=== PATIENT | female | born 1995 ===

== ENCOUNTER 2021-05-01 09:46 | Inpatient (IN) | payer SELFPAY ==
[2021-05-01] MEDS ORDERED: METOCLOPRAMIDE 10 MG/2 ML INJ IV ONE (10:04)
[2021-05-01] MEDS ORDERED: FAMOTIDINE 20 MG/2 ML INJ IV ONE (10:04)
[2021-05-01] MEDS ORDERED: BICITRA ORAL LIQD 30ML PO ONE (10:04)
--- NOTE | 2021-05-01 10:07 | History and Physical Report ---
History of Present Illness Date of examination: 05/01/21 Date of admission: 05/01/21 09:46 Chief complaint: repeat section Past History - Obstetrical History Expected Date of Delivery: 05/01/21 Actual Gestation: 40 Week(s) 0 Day(s) : 4 Para: 2 Spontaneous Abortions: 1 Number of Living Children: 2 Medications and Allergies Allergies Allergy/AdvReac Type Severity Reaction Status Date / Time Penicillins Allergy Hives Verified 05/01/21 10:17 Home Medications Medication Instructions Recorded Confirmed Last Taken Type One Daily Tablet 1 tab PO DAILY 05/01/21 05/01/21 1 Day Ago History ~04/30/21 Review of Systems All systems: negative (no OB complaints) - Physical Exam Breasts: Positive: deferred Cardiovascular: Regular rate Abdomen: Positive: normal appearance, soft Genitourinary (Female): Positive: normal external genitalia Vulva: both: normal Vagina: Positive: normal moisture Uterus: Positive: enlarged (37cm) Adnexa: both: normal Anus/Rectum: Positive: normal perianal skin Extremities: Positive: normal Deep Tendon Reflex Grade: Normal +2 Results Result Diagrams: 05/01/21 10:18 All other labs normal. Assessment and Plan ERCS NPO, clinical rn liaison to OR for procedure Louie Petty MD
[2021-05-01] MEDS ORDERED: CLINDAMYCIN 600 MG/50 mL 600 MG/50 ML BAG IV NR (11:00)
[2021-05-01] MEDS ORDERED: ceFAZolin/Water 2 GM/20 ML 2 GM/20 ML SYRINGE IV NR (11:00)
[2021-05-01] MEDS ORDERED: OXYTOCIN DRIP 30 UNITS/500 ML BAG IV SCH (11:00)
[2021-05-01 11:02] LABS: Basophils % (Auto) 0.4 % (0.0-1.8); Eosinophils # (Auto) 0.2 K/mm3 (0.0-0.4); Eosinophils % (Auto) 1.7 % (0.0-4.3); Hematocrit 36.4 % (30.3-42.9); Hemoglobin 12.3 gm/dl (10.1-14.3); Lymphocytes # (Auto) 2.8 K/mm3 (1.2-5.4); Lymphocytes % (Auto) 26.5 % (13.4-35.0); Mean Corpuscular HGB Conc 34 % (30-34); Mean Corpuscular Volume 82 fl (79-97); Monocytes % (Auto) 9.1 % (0.0-7.3); Red Blood Count 4.46 M/mm3 (3.65-5.03); Red Cell Distribution Width 13.6 % (13.2-15.2)
[2021-05-01] MEDS: LACTATED RINGERS 1,000 ML IV SCH ×3 (11:13→20:55)
[2021-05-01 12:12] LABS: Platelet Count 246 K/mm3 (140-440)
--- NOTE | 2021-05-01 12:31 | Anesthesia Consultation ---
Anesthesia Consult and Med Hx Date of service: 05/01/21 - Airway Anesthetic Teeth Evaluation: Good ROM Head & Neck: Adequate Mental/Hyoid Distance: Adequate Mallampati Class: Class II Intubation Access Assessment: Good - Pulmonary Exam CTA: Yes - Cardiac Exam Cardiac Exam: RRR - Pre-Operative Health Status ASA Pre-Surgery Classification: ASA2 Proposed Anesthetic Plan: Spinal (mexican speaking, inter line for consent and h/p) - Pulmonary Hx Asthma: No COPD: No Hx Pneumonia: No - Cardiovascular System Hx Hypertension: No - Central Nervous System Hx Seizures: No Hx Psychiatric Problems: No - Endocrine Hx Renal Disease: No Hx End Stage Renal Disease: No Hx Hypothyroidism: No Hx Hyperthyroidism: No - Hematic Hx Anemia: No Hx Sickle Cell Disease: No - Other Systems Hx Alcohol Use: Yes (before preg.)
--- NOTE | 2021-05-01 12:31 | Anesthesia Day of Surgery ---
Anesthesia Day of Surgery - Day of Surgery Patient Examined: Yes Patient H&P Reviewed: Yes Patient is NPO: Yes
[2021-05-01] MEDS ORDERED: WATER FOR IRRIG STERILE 1,500 ML BOTTLE IR ONE (13:00)
[2021-05-01] MEDS ORDERED: SODIUM CHLORIDE 0.9% IRR 1,500 ML BOTTLE IR ONE (13:00)
[2021-05-01] MEDS ORDERED: IBUPROFEN 600 MG TAB PO PRN (14:07)
--- NOTE | 2021-05-01 14:16 | Procedure Note ---
OB Delivery Note - Delivery Date of Delivery: 05/01/21 Surgeon: CHIARA FAIR - Section Preop diagnosis: repeat Postop diagnosis: same section procedure: repeat low transverse Disposition: PACU Complications: none Narrative: Preop diagnosis: IUP at 40.0 weeks,previous sectionx2 for elective repeat section Postop diagnosis: Same,delivered Procedure: Repeat low transverse section via Pfannenstiel incision Surgeon: Dr. Chiara Fair Anesthesia spinal Complications none EBL 600ml IV fluids 1000mL Urine output 100mL, clear Drains Loving to gravity Findings: Viable male with weight 2970gms and 9/9, normal uterus tubes and ovaries bilaterally Procedure: Patient was consented in OB triage, taken to the operating room where she received excellent spinal anesthesia. She was then placed in the dorsal supine position with a leftward tilt. The abdomen was prepped and draped in a sterile fashion, and a timeout was verified. Adequate anesthesia was confirmed prior to the skin incision. A Pfannenstiel skin incision was made with a scalpel taken down to the underlying structures and the fascia was incised in the midline. The incision was extended laterally with curved Calderon scissors, the superior and inferior aspects of the fascial incisions were grasped with Hemant clamps and the rectus muscles dissected sharply. The abdomen was entered bluntly in the midline carried down inferiorly with good visualization of the bladder. The vesicouterine peritoneum was tented with [place] forceps and incised in the midline with Metzenbaum scissors and the vesicouterine peritoneum taken down sharply. Bladder blade was inserted, the uterine incision was made sharply with a scalpel. The inferior and superior aspect of the uterine incisions were extended bluntly, the baby's head was delivered atraumatically. The remainder of the delivery was uncomplicated, a loose nuchal cord was reduced after delivery. The cord was clamped and cut and baby handed to waiting NICU team. An intact placenta with three-vessel cord delivered manually. The uterus was then cleared of all clots and debris and the uterus exteriorized. The uterine incision was closed with 2 layers of 0 chromic with excellent hemostasis. The abdomen was then irrigated with warm normal saline and the uterus placed back into the abdomen atraumatically. A second look at the uterine incision and assured hemostasis. The peritoneum was closed with 3-0 Vicryl, the rectus muscles approximated with 3-0 Vicryl, and the fascia closed with 0 Vicryl in the usual fashion. The subcuticular structures were closed with interrupted sutures of 3-0 Vicryl and the skin closed with 4-0 Monocryl. A pressure dressing was applied. All sponge needle and instrument counts were correct x2. There were no complications. Mom and baby to PACU and in stable condition. Louie Fair MD
--- NOTE | 2021-05-01 14:28 | Post Anesthesia Evaluation ---
- Post Anesthesia Evaluation Patient Participated: Yes Airway Patent: Yes Stable Respiratory Function: Yes Nausea/Vomiting: No Temp > 96.8F: Yes Pain Manageable: Yes Adequeate Hydration: Yes Anesthesia Complications: No Block Receding Appropriately: Yes Patient on Ventilator: No
--- NOTE | 2021-05-01 14:31 | Progress Note ---
Spinal Anesthesia Block - Spinal Anesthesia Block Start Time: 12:40 Stop Time: 12:46 Performed by:: AMY EAST Procedure: Spinal anesthesia block is being performed for [repeat c/s]. H&P, labs have been reviewed. Patient's questions and concerns have been answered. Informed consent has been performed. Timeout has was performed. Patient in sitting position on side of bed. Sterile prep and drape was performed. 3 mL 1% lidocaine skin wheal at L [3]-L [4]. Needle introducer advanced. 25-gauge spinal needle advanced, [+] CSF [-] blood. [1.2 .75 bup with dextrose and 10 mcg precedex] Spinal dose was given. All needles removed. Patient tolerated procedure well.
--- NOTE | 2021-05-01 14:32 | Progress Note ---
Regional Anesthesia Block - Regional Anesthesia Block Start Time: 14:07 Stop Time: 14:16 Performed By:: AMY EAST Procedure: Patient consented for TAP block for post surgical pain management. Patient identified, monitors placed, and time out performed. Mid axillary TAP identified bilaterally via ultrasound. Skin prepped bilaterally with [chlorhexidine] and [20g stimuplex] needle advanced to the TAP. 30ml [Marcaine 0.25% with 25mcg Precedex and Decadron 5mg] injected under ultrasound guidance on the [left] side. 30ml [Marcaine 0.25% with 25mcg Precedex and Decadron 5mg] injected under ultrasound guidance on the [right] side. Negative aspiration every 5mL, Patient tolerated the procedure well. No apparent complications seen.
[2021-05-01] MEDS ORDERED: ACETAMINOPHEN 325 MG TAB PO PRN (15:00)
[2021-05-01] MEDS ORDERED: WITCH HAZEL/ GLYCERIN PAD TP PRN (15:00)
[2021-05-01] MEDS ORDERED: KETOROLAC 30 MG/1 ML INJ IV PRN (15:00)
[2021-05-01] MEDS ORDERED: LANOLIN/ZINC/DIMETHICONE (LANSINOH) 7 GM TP PRN (15:00)
[2021-05-01] MEDS ORDERED: PROMETHAZINE 25 MG RECT SUPP PR PRN (15:00)
[2021-05-01] MEDS ORDERED: ONDANSETRON 4 MG/2 ML INJ IV PRN (15:00)
[2021-05-01] MEDS ORDERED: NALOXONE 0.4 MG/1 ML INJ IV PRN (15:00)
[2021-05-01] MEDS ORDERED: MORPHINE 2 MG/1 ML INJ IV PRN (15:00)
[2021-05-01] MEDS: MORPHINE 4 MG/1 ML INJ IV PRN (18:03)
[2021-05-01] MEDS: KETOROLAC 30 MG/1 ML INJ IV PRN (21:01)
[2021-05-01] MEDS ORDERED: SENNOSIDES 8.6 MG TAB PO PRN (22:00)
[2021-05-01] MEDS ORDERED: MAGNESIUM HYDROXIDE (MOM) ORAL LIQD UDC PO PRN (22:00)
[2021-05-02] MEDS: MORPHINE 4 MG/1 ML INJ IV PRN ×3 (00:08→10:47)
[2021-05-02 01:18] LABS: Hematocrit 31.7 % (30.3-42.9); Hemoglobin 11.1 gm/dl (10.1-14.3)
[2021-05-02] MEDS: KETOROLAC 30 MG/1 ML INJ IV PRN ×2 (02:46→09:11)
[2021-05-02] MEDS: FERROUS SULFATE 325 MG TAB PO SCH (10:20)
--- NOTE | 2021-05-02 11:51 | Progress Note ---
Assessment and Plan A: /postop day 1 S/P repeat LTCS. P: Encouraged patient to ambulate. Advance diet. Continue routine /postop care. Subjective - Subjective Date of service: 05/02/21 Principal diagnosis: /postop day 1 S/P repeat LTCS Patient reports: appetite normal, voiding normally, pain well controlled, flatus, ambulating normally, no dizzy ambulation : doing well Objective - Vital Signs Latest vital signs: Vital Signs Temp Pulse Resp BP BP Pulse Ox Pulse Ox 05/02/21 08:26 97.5 F L 59 L 18 101/60 97 05/02/21 08:20 100 05/02/21 05:49 97.9 F 68 18 98/57 97 05/02/21 00:24 98.1 F 67 18 119/52 97 05/01/21 20:33 97.9 F 63 16 94/50 98 05/01/21 20:30 100 05/01/21 15:55 97.5 F L 56 L 16 99/50 97 97 05/01/21 15:23 98 F 56 L 19 100/51 98 05/01/21 14:40 97.6 F 66 16 100/52 98 05/01/21 14:25 59 L 18 101/52 98 05/01/21 14:10 61 17 109/49 98 05/01/21 14:05 62 18 106/52 98 05/01/21 13:58 97.8 F 62 19 104/51 98 05/01/21 12:11 76 97 05/01/21 12:06 60 99 05/01/21 12:01 71 99 05/01/21 11:56 60 99 05/01/21 11:51 58 L 99 Intake and Output 05/01/21 05/02/21 05/02/21 23:59 07:59 15:59 Intake Total 120 600 Output Total 350 1600 Balance -230 -1000 Intake: Oral 120 Intake, Free Water 600 Output: Urine 350 1600 Indwelling Catheter 350 1600 Other: Total, Intake Amount 120 Total, Output Amount 350 1600 - Exam Cardiovascular: Present: Regular rate Lungs: Present: Clear to auscultation Abdomen: Present: normal appearance, soft, normal bowel sounds. Absent: distention, tenderness, guarding, rigidity Uterus: Present: normal, firm, fundal height below umbilicus. Absent: bogginess, tenderness Extremities: Present: normal. Absent: tenderness, edema Incision: Present: normal, dry, dressed
[2021-05-02] MEDS ORDERED: MEASLES, MUMPS & RUBELLA 12,500 UNIT/0.5 ML VACCINE SUB-Q ONE (12:00)
[2021-05-02] MEDS ORDERED: SIMETHICONE 80 MG CHEW TAB PO PRN (12:00)
[2021-05-02] MEDS: HYDROcodone/ACETAMINOPHEN 5-325 MG TAB PO PRN ×2 (15:08→21:57)
[2021-05-02] MEDS: IBUPROFEN 800 MG TAB PO PRN (18:20)
[2021-05-03] MEDS: IBUPROFEN 800 MG TAB PO PRN (05:01)
--- NOTE | 2021-05-03 10:19 | Progress Note ---
Assessment and Plan stable continue routine postop care may d/c to home as desired Louie Petty MD Subjective - Subjective Date of service: 05/03/21 Principal diagnosis: /postop day 1 S/P repeat LTCS Patient reports: appetite normal, voiding normally, pain well controlled, ambulating normally [place]: doing well Objective - Vital Signs Latest vital signs: Vital Signs Temp Pulse Resp BP BP Pulse Ox Pulse Ox 05/03/21 08:50 98 F 62 16 100/60 05/03/21 08:00 98 05/03/21 05:01 12 05/03/21 01:14 98.3 F 64 20 98/56 96 05/02/21 21:57 12 05/02/21 20:00 98 05/02/21 16:15 97.9 F 63 18 106/50 97 Intake and Output 05/02/21 05/03/21 05/03/21 23:59 07:59 15:59 Intake Total 360 240 120 Balance 360 240 120 Intake: Oral 240 120 Intake, Free Water 360 Other: Total, Intake Amount 240 120 # Voids Void 2 1 1 - Exam Breasts: Present: deferred Cardiovascular: Present: Regular rate Lungs: Present: Clear to auscultation Abdomen: Present: normal appearance, soft, normal bowel sounds Vulva: both: normal Uterus: Present: fundal height below umbilicus Extremities: Present: normal Deep Tendon Reflex Grade: Normal but brisk +3 Incision: Present: normal, dry, intact, dressed
--- NOTE | 2021-05-03 10:20 | Discharge Summary ---
Providers - Providers Date of Admission: 05/01/21 09:46 Date of discharge: 05/03/21 Attending physician: CHIARA FAIR MD Primary care physician: CHIARA FAIR MD Hospitalization Reason for admission: section Delivery: Incision: normal, intact, dressed Condition at discharge: Stable Disposition: 01 HOME / SELF CARE / HOMELESS Plan - Discharge Medications Prescriptions: Ibuprofen [Motrin] 600 mg PO Q8H PRN #60 tablet PRN Reason: Pain oxyCODONE /ACETAMINOPHEN [Percocet 5/325] 1 tab PO Q6HR PRN #20 tablet PRN Reason: Pain - Provider Discharge Summary Activity: no sex for 6 weeks Diet: routine Instructions: routine Additional instructions: [] Smoking cessation referral if applicable(refer to patient education folder for contact #) [] Refer to [facility] Booklet Call your doctor immediately for: * Fever > 100.5 * Heavy vaginal bleeding ( >1 pad per hour) * Severe persistent headache * Shortness of breath * Reddened, hot, painful area to leg or breast * Drainage or odor from incision. * Keep incision clean and dry at all times and follow doctor's instructions regarding bathing/showering - Follow up plan Follow up: CHIARA FAIR MD [Primary Care Provider] - 14 Days
[2021-05-03] MEDS: FERROUS SULFATE 325 MG TAB PO SCH (11:31)
[2021-05-03 15:07] VITALS: BP 103/58
== END 2021-05-03 16:20 | disposition home or self-care (01) | DRG 788 ==
LOC: APU 09:46 → OB 16:03
PROVIDERS: ADMIT Obstetrics & Gynecology; ATTEND Obstetrics & Gynecology
PROC: 10D00Z1 Extraction of Products of Conception, Low, Open Approach (ICD-10-PCS; principal; 2021-05-01)
PROC: 3E0T3BZ Introduction of Anesthetic Agent into Peripheral Nerves and Plexi, Percutaneous Approach (ICD-10-PCS; 2021-05-01)
DX: O34.211 Maternal care for low transverse scar from previous cesarean delivery (principal); Z3A.40 40 weeks gestation of pregnancy; Z37.0 Single live birth; Z88.0 Allergy status to penicillin; Z20.822 Contact with and (suspected) exposure to COVID-19
CPT/HCPCS: 36415; 85014; 85018; 85025; 86850; 86900; 86901; G0378; J1885; J2270; J2765; J7120; U0003